=== PATIENT | female | born 1985 | race Two or more races ===

== ENCOUNTER 2025-01-17 11:33 | Outpatient (AMB) | payer MEDICAID, SELFPAY ==
[2025-01-17 11:49] VITALS: BP 101/68; PULSE 82; RESP 16; TEMP 36.6; O2SAT 98; BMI 31.4
--- NOTE | 2025-01-17 11:49 | GYNCLNT_ITS ---
Vital Signs 01/17/25 11:49 Height 1.57 m Height Method Stated Weight 78.018 kg Weight Measurement Method Standing Scale BMI 31.4 BP 101/68 Blood Pressure Source Automatic Cuff Blood Pressure Location Left Upper Arm Position Sitting Respiration 16 Pulse 82 Pulse Source Monitor Temp 97.8 F Temp Source Oral Pulse Oximetry (%) 98 Oxygen Delivery Method Room Air Allergies/Home Meds Allergies & Medications Allergies No Known Allergies Allergy (Verified 01/17/25 11:51) Medication Reconciliation drospirenone 3 mg-ethinyl estradiol 0.03 mg tablet (Devika (28)) 1 tab PO QDAY #84 tabs 01/17/25 [Rx] fluconazole 150 mg tablet 150 mg PO QDAY 3 days #3 tabs 01/17/25 [Rx] Intake Visit Data Collection New Patient or Established: Established Patient (seen at [facility] within 3 years) Reason for Visit:: IRREGULAR MENSES Seen by Clinical Staff ONLY (RN/MA): No 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 Required: No Do You Feel Safe at Home: Yes Authorities Contacted: N/A PCP or OBGYN visit in last 3 months: Yes Hx Now: No Are you currently on any form of Control: Yes Last menstrual period: 01/05/25 Pain Present Currently: No Pain Scale Used: Tellez-Kaba/Numerical Pain scale:: 0 Smoking Status Smoking Status: Never smoker 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 1. Little interest or pleasure in doing things: not at all 2. Feeling down, depressed, or hopeless: not at all Total score: 0 PHQ-9 3. Trouble falling or staying asleep, or sleeping too much: Not at all 4. Feeling tired or having little energy: Not at all 5. Poor appetite or overeating: Not at all 6. Feeling bad about yourself - or that you are a failure or have let yourself or your family down: Not at all 7. Trouble concentrating on things, such as reading the newspaper or watching television: Not at all 8. Moving or speaking so slowly that other people could have noticed? - Or the opposite - being so fidgety or restless that you have been moving around a lot more than usual: not at all 9. Thoughts that you would be better off or of hurting yourself in some way: Not at all Total score: 0 Source: Developed by Drs. Hakeem Ellis, Hannah Myers, Edmundo Thomas and colleagues, with an educational yoel from [employer]. Depression screen completed yes Social History Living Situation History Marital Status: Lives With: Family Housing: House Tobacco History Smoking Status: Never smoker Second Hand Smoke Exposure: No Alcohol History Alcohol Intake: Never Domestic Abuse History Do You Feel Safe at Home: Yes Past Medical History Past Medical History Have you ever been diagnosed with any of the following: Neurological Problems Cerebrovascular Accident (CVA): No Transient Ischemic Attacks (TIA): No Dementia: No Alzheimer's Disease: No Parkinson's Disease: No Brain Tumor: No Seizures: No Cardiology Problems Myocardial Infarction: No Cardiac Arrhythmia: No Atrial Fibrillation: No Angina: No Heart Murmur: No Coronary Artery Disease: No Congestive Heart Failure: No Respiratory Problems Chronic Obstructive Pulmonary Disease (COPD): No Stomache/Intestinal Problems Liver Cancer: No Hepatitis: No Cirrhosis: No Pancreatic Cancer: No Genital/Urinary Problems Chronic Kidney Disease: No Renal Disease: No Reproductive Problems Breast Cancer: No Endometriosis: No Fibroids: No Genital Herpes: No Previous Pregnancies: Yes Musculoskeletal Problems Muscular Dystrophy: No Myasthenia Gravis: No Marfan's Syndrome: No Arthritis: Yes Rheumatoid Arthritis: Yes Osteoporosis: No Degenerative Disk Disease: No Gout: No Scoliosis: No Head,Eye,Nose,Throat Problems Cataracts: No Glaucoma: No Blind: No Retinal Detachment: No Macular Degeneration: No Endocrine Problems Diabetes Mellitus Type 1: No Diabetes Mellitus Type 2: No [place]'s Syndrome: No Armona's Disease: No Adrenal Disease: No Graves' Disease: No Blood Problems Anemia: No Leukemia: No Hemophilia: No Thalassemia: No Psychologic Problems Schizophrenia: No Recreational Drug Use: No Depression: Yes Anxiety: Yes Other Problems Hospitalization: No Autoimmune Disease: No Blood Transfusions: No Blood Transfusion Reaction: No Anesthesia Reactions: No Cancer: No Surgical History Angioplasty: No Appendectomy: No Bariatric Surgery: No Breast Surgery: No Cancer Surgery: No History of Present Illness HPI Narrative 39-year-old 4 para 3 for irregular menses evaluation. Patient is referred [facility] for history of abnormal menses in October. Usually menses is every month lasting 5 days regular flow. Patient skipped her period in October. In November and December menses were normal. Last. January 05, 2025. Patient reports that this period was midwife but for 5 days. She also has a complaint that 2 to 3 days prior to each menses she gets a headache and feels bloated. She takes Enskyce with good compliance. She is taken Enskyce for 5 days but she feels that that is contributing to her headache. She denies social habits. Denies chronic illness. Patient is currently using medication for weight loss. And she is a previous x 1 Review of Systems Review of Systems Systems Reviewed: All systems reviewed, normal except as documented Exam General Limitations: no limitations General Appearance: alert, in no apparent distress, comfortable, cooperative, healthy appearing, well developed and well groomed Head Head exam: atraumatic, normocephalic and normal inspection Resp Respiratory exam: Present normal lung sounds bilaterally Card Cardiovascular exam: Present regular rate, normal rhythm and normal heart sounds Abdominal Abdominal exam: Present soft and normal bowel sounds External exam: Present normal external exam Speculum exam: Present vaginal discharge (white, curdy, thick) and other (vagina pink, good rugae) Bimanual exam: Present normal bimanual exam Psych Psychiatric exam: Present normal affect and normal mood Results Objective Laboratory: pap negative, PCOS labs drawn11/24: test/dheas/TSH/fsh/LH normal, prolactin slight elevated: 33.6(33.4). a1C NORMAL Assessment & Plan Diagnosis / Problem List (1) Irregular menstruation, unspecified: Status: Acute (2) Encounter for control pills maintenance: Status: Acute (3) Acute candidiasis of vulva and vagina: Status: Acute Plan Discussed labs with patient today. I reviewed PCOS labs with patient her prolactin was just a little little high off normal. Reviewed control pills side effects and compliance with method. I changed her prescription from Enskyce to Devika x 3 cycles. With 4 refills. NuSwab plus done for complaints of vaginitis. Diflucan 150 mg p.o every day x 3 days. Discussed comfort measures for vaginitis. Encouraged patient to continue with diet and exercise and follow-up at [facility] for weight management. Patient will return in 3 months for follow-up on irregular menses Additional Plan Follow Up: 3 Months (f/u on irregular menses) Office Procedures OB Clinic LOC & Office Proc's Nursing/Assessment Patient Status: Established Patient OB Clinic Nursing Assessment: Medication Reconciliation, Update PMH in EMR and Vital Signs OB Clinic Coordination of Care: Complex Care and Chronic Disease 1-5, Consent,records obtained, informed consent, Education Simp Pt/Fam, Lab and Imaging orders, Results/Orders obtained and Staff clarify orders Established Patient Charge Established Patient Point Assignment: 105 Established Patient Point Charge: EP Level 3 (80-115)
== END 2025-01-17 12:11 | disposition home or self-care (01) ==
LOC: HODSOBC 11:33
PROVIDERS: PCP Advanced Practice Midwife; Referring Provider Advanced Practice Midwife; Supervising Provider Obstetrics & Gynecology; Visit Provider Advanced Practice Midwife
DX: N92.6 Irregular menstruation, unspecified (principal); B37.31 Acute candidiasis of vulva and vagina; Z30.41 Encounter for surveillance of contraceptive pills
CPT/HCPCS: 99213; G0463

== ENCOUNTER 2025-07-11 10:52 | Outpatient (AMB) | payer MEDICAID, SELFPAY ==
[2025-07-11 11:01] VITALS: BP 107/71; PULSE 76; RESP 16; TEMP 36.8; O2SAT 97; BMI 29.0
--- NOTE | 2025-07-11 11:02 | GYNCLNT_ITS ---
Vital Signs 07/11/25 11:01 07/11/25 11:03 Height 1.57 m Height Method Stated Weight 71.724 kg Weight Measurement Method Standing Scale BMI 29.0 BP 107/71 107/71 Blood Pressure Source Automatic Cuff Blood Pressure Location Left Upper Arm Position Sitting Respiration 16 16 Pulse 76 76 Pulse Source Monitor Temp 98.2 F 98.2 F Temp Source Oral Pulse Oximetry (%) 97 97 Oxygen Delivery Method Room Air Allergies/Home Meds Allergies & Medications Allergies No Known Allergies Allergy (Verified 07/11/25 11:02) Medication Reconciliation drospirenone 3 mg-ethinyl estradiol 0.03 mg tablet (Devika (28)) 1 tab PO QDAY #84 tabs 01/17/25 [Rx Confirmed 07/11/25] Intake Visit Data Collection New Patient or Established: Established Patient (seen at [facility] within 3 years) Reason for Visit:: FOLLOW UP MENSES Seen by Clinical Staff ONLY (RN/MA): No Alodize Machine Operator Required: No Do You Feel Safe at Home: Yes Authorities Contacted: N/A PCP or OBGYN visit in last 3 months: Yes Date of Last PCP or OBGYN visit: 01/17/25 Hx Now: No Are you currently on any form of Control: No Pain Present Currently: No Pain Scale Used: Tellez-Kaba/Numerical Pain scale:: 0 Smoking Status Smoking Status: Never smoker 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 1. Little interest or pleasure in doing things: not at all 2. Feeling down, depressed, or hopeless: not at all Total score: 0 PHQ-9 3. Trouble falling or staying asleep, or sleeping too much: Not at all 4. Feeling tired or having little energy: Not at all 5. Poor appetite or overeating: Not at all 6. Feeling bad about yourself - or that you are a failure or have let yourself or your family down: Not at all 7. Trouble concentrating on things, such as reading the newspaper or watching television: Not at all 8. Moving or speaking so slowly that other people could have noticed? - Or the opposite - being so fidgety or restless that you have been moving around a lot more than usual: not at all 9. Thoughts that you would be better off or of hurting yourself in some way: Not at all Total score: 0 If you checked off any problems, how difficult have these problems made it for you to do your work, take care of things at home, or get along with other people?: not difficult at all Source: Developed by Drs. Hakeem Ellis, Hannah Myers, Edmundo Thomas and colleagues, with an educational yoel from [employer]. Depression screen completed yes Social History Living Situation History Lives With: Family Housing: House Tobacco History Smoking Status: Never smoker Second Hand Smoke Exposure: No Alcohol History Alcohol Intake: Never Domestic Abuse History Do You Feel Safe at Home: Yes History of Present Illness HPI Narrative 39-year-old 4 para 2 until the for follow-up on irregular menses. Patient was seen 3 months ago with complaints of having a period once every 3 months. And sometimes skipping more than 3 months. She reported that periods lasted 5 days. She also had been treated for vaginitis. Patient reports that since she has been taking Devika her periods are now every month and normal again. She is also taking stepdown for weight loss and has reached her goal. Previous C-sections. No other medical complaints. No other LEG BREAKER complaints Review of Systems Review of Systems Systems Reviewed: All systems reviewed, normal except as documented Exam General Limitations: no limitations General Appearance: alert, in no apparent distress, comfortable, cooperative, healthy appearing, well developed and well groomed Head Head exam: atraumatic, normocephalic and normal inspection Chest Chest inspection: Present normal inspection and symmetric chest wall rise Resp Respiratory exam: Present normal lung sounds bilaterally Card Cardiovascular exam: Present regular rate, normal rhythm and normal heart sounds Abdominal Abdominal exam: Present soft and normal bowel sounds Office Procedures OBC Clinic LOC & Office Proc's Nursing/Assessment Patient Status: Established Patient OB Clinic Nursing Assessment: Medication Reconciliation, Update PMH in EMR and Vital Signs OB Clinic Coordination of Care: Education Complex Pt/Fam, Consent,records obtained, informed consent, Lab and Imaging orders, Results/Orders obtained and Staff clarify orders Established Patient Charge Established Patient Point Assignment: 85 Established Patient Point Charge: EP Level 3 (80-115) Assessment & Plan Diagnosis / Problem List (1) Encounter for control pills maintenance: Status: Acute (2) Irregular menstruation, unspecified: Status: Acute Plan Continue Devika as directed. Continue to track menses. Multivitamin with folic acid. Reviewed Devika compliance and side effects. Continue to work on diet and increase activity. Follow-up with primary care. Additional Plan Follow Up: 1 Year (ocp refill)
[2025-07-11 11:03] VITALS: BP 107/71; PULSE 76; RESP 16; TEMP 36.8; O2SAT 97
== END 2025-07-11 11:14 | disposition home or self-care (01) ==
LOC: HODSOBC 10:52
PROVIDERS: Supervising Provider Advanced Practice Midwife; Visit Provider Advanced Practice Midwife
DX: Z30.41 Encounter for surveillance of contraceptive pills (principal); N92.6 Irregular menstruation, unspecified
CPT/HCPCS: 99213; G0463